=== PATIENT | female | born 1990 | race Two or more races ===

== ENCOUNTER 2020-01-22 09:18 | Inpatient (IN) | payer SELFPAY ==
[~2020-01-22] VITALS: Ht 154.9 cm; Wt 51.9 kg
[2020-01-22 09:45] LABS: Basophils # (auto) 0 10 ^3/uL (0-0.2); Basophils % (auto) 0.3 % (0.0-2.0); Eosinophils # (auto) 0 10 ^3/uL (0-0.8); Eosinophils % (auto) 0.1 % (0.0-7.0); Hemoglobin 15.1 g/dL (12.2-16.2); Lymphocytes # (auto) 0.9 10 ^3/uL (0.4-5.4); Mean Corpuscular Hemoglobin 29.8 pg (28.0-32.0); Mean Corpuscular Hgb Conc. 33.6 g/dL (32.0-36.0); Mean Corpuscular Volume 88.6 fL (80.0-100.0); Monocytes # (auto) 0.2 10 ^3/uL (0-1.3); Monocytes % (auto) 1.5 % (0.0-12.0); Neutrophils # (auto) 14.3 10 ^3/uL (1.6-8.6); Neutrophils % (auto) 92.1 % (37.0-80.0); Nucleated Red Blood Cells % 0.1 %; Platelet Count (auto) 309 10^3/uL (140-450); Red Blood Cells 5.08 10^6/uL (4.0-5.20); Red Cell Distribution Width 12.1 % (11.8-14.3); White Blood Cell 15.5 10^3/uL (4.4-10.8)
[2020-01-22] MEDS ORDERED: SODIUM CHLORIDE 0.9% 1,000 ML IV ONE ×2 (09:54)
[2020-01-22 09:59] LABS: Urine Bacteria FEW /hpf (None Seen); Urine Blood Negative /uL (Negative); Urine Mucus FEW (None Seen); Urine WBC 3 /hpf (0 - 5)
[2020-01-22] MEDS ORDERED: KETOROLAC TROMETH 15 mg/ml 1ML VL IV ONE ×2 (10:00→12:30)
[2020-01-22] MEDS ORDERED: ONDANSETRON HCL 4 MG/2 ML VIAL IV ONE (10:00)
[2020-01-22 10:01] LABS: Albumin 4.2 g/dL (3.4-5.0); Calcium 9.1 mg/dL (8.5-10.1); Potassium 3.4 mmol/L (3.5-5.1)
[2020-01-22 10:05] LABS: BUN/Creatinine Ratio 11.8; Bilirubin, Total 0.3 mg/dL (0.2-1.0); Total Protein 8.6 g/dL (6.4-8.2)
[2020-01-22] MEDS ORDERED: cefTRIAXone 1GM/50ML D5W 50 ML IV ONE (10:15)
[2020-01-22] MEDS ORDERED: HYDROmorphone HCL 2 MG/ML VL IV ONE (10:15)
[2020-01-22 10:59] LABS: Lactic Acid w/Reflex 3.9 mmol/L (0.4-2.0)
[2020-01-22] MEDS ORDERED: POTASSIUM CHL 20MEQ/100ML 100 ML IV ONE (11:15)
[2020-01-22] MEDS ORDERED: KETOROLAC TROMETH 30 MG/ML 1ML VIAL IV ONE (12:45)
[2020-01-22] MEDS ORDERED: NITROGLYCERIN 0.4 MG SL TAB SL PRN (13:30)
[2020-01-22] MEDS ORDERED: PROMETHAZINE HCL 25 MG/ML 1ML IV PRN (13:30)
[2020-01-22] MEDS ORDERED: POTASSIUM CHL 20MEQ/100ML 100 ML IV SCH (13:30)
[2020-01-22] MEDS ORDERED: PANTOPRAZOLE 40 MG/10 ML VIAL INJ IV ONE (13:30)
[2020-01-22] MEDS ORDERED: MORPHINE SULF INJ 2 MG/ML SYRINGE 1ML IV PRN (13:30)
[2020-01-22] MEDS ORDERED: metroNIDAZOLE 500MG/100ML 100 ML IV ONE (13:30)
--- NOTE | 2020-01-22 14:50 | NUR ---
Telemetry admit from [facility] admitted to Telemetry unit after SBAR received. Patient oriented to Pato Morales, primary RN, unit, room, bed, and unit policies regarding patient care and visiting hours. Patient now on continuous telemetry monitoring, tele box # 37 and telemetry reading on arrival to unit is Sinus rhythm. Patient weighed by bedscale and encouraged to call if they need something. All questions and concerns addressed, patient verbalized understanding.
[2020-01-22 15:00] VITALS: BP 113/75
[2020-01-22 15:46] LABS: INR 1.08 (0.9-1.15)
[2020-01-22] MEDS: SODIUM CHLORIDE 0.9% 1,000 ML IV SCH ×2 (16:46→23:22)
[2020-01-22] MEDS: MORPHINE SULF INJ 2 MG/ML SYRINGE 1ML IV PRN ×2 (16:48→22:13)
[2020-01-22 17:00] VITALS: BP 109/71
--- NOTE | 2020-01-22 18:15 | NUR ---
SPOKE WITH DR. HARPER AND INFORMED HIM OF THE PATIENTS HIDA SCAN RESULTS. OBTAINED ORDERS FOR PROCEDURE TOMORROW.
--- NOTE | 2020-01-22 18:30 | NUR ---
LEFT MESSAGE FOR DR. RAZA INFORMING HIM THAT DR. HARPER WANTS TO DO SURGERY TOMORROW. THIS IS A CONFLICT WITH DR. RAZA'S IN PLACE PLANS FOR EGD. AWAITING CALL BACK FROM DR. RAZA TO GET ORDERS.
[2020-01-22 18:33] LABS: Hematocrit 38.3 % (36.0-46.0); Hemoglobin 12.6 g/dL (12.2-16.2)
--- NOTE | 2020-01-22 18:41 | NUR ---
SPOKE WITH DR. RAZA. EGD IS CANCELED FOR TOMORROW SO THAT DR. HARPER CAN PERFORM HIS PROCEDURE.
[2020-01-22 19:15] VITALS: BP 113/75
--- NOTE | 2020-01-22 19:50 | NUR ---
OPENING SHIFT NOTE Pt is resting in bed with eyes open and resp rate is even and unlabored. No s/s of any distress noted at this time. Via Afghan translation by Magalie ROMAN, POC discussed with pt and pt verbalizes understanding. Pt's consent for surgery is in the chart awaiting pt signature post informed consent. Potassium infusing with no adverse reaction. Bed is low, wheels are locked, and call light is with in reach.
[2020-01-22] MEDS: POTASSIUM CHL 20MEQ/100ML 100 ML IV SCH ×2 (20:00→23:22)
[2020-01-22 21:13] VITALS: BP 110/60
[2020-01-22] MEDS: metroNIDAZOLE 500MG/100ML 100 ML IV SCH (23:23)
[2020-01-22] MEDS: PANTOPRAZOLE 40 MG/10 ML VIAL INJ IV SCH (23:23)
[2020-01-23 00:53] LABS: Hematocrit 35.7 % (36.0-46.0)
[2020-01-23] MEDS: SODIUM CHLORIDE 0.9% 1,000 ML IV SCH ×3 (02:53→16:27)
[2020-01-23 04:55] VITALS: BP 111/57
[2020-01-23 05:58] LABS: Basophils # (auto) 0 10 ^3/uL (0-0.2); Basophils % (auto) 0.3 % (0.0-2.0); Eosinophils # (auto) 0.1 10 ^3/uL (0-0.8); Eosinophils % (auto) 0.4 % (0.0-7.0); Hematocrit 35.8 % (36.0-46.0); Hemoglobin 12.3 g/dL (12.2-16.2); Lymphocytes # (auto) 2.1 10 ^3/uL (0.4-5.4); Lymphocytes % (auto) 16.1 % (10.0-50.0); Mean Corpuscular Hemoglobin 30.2 pg (28.0-32.0); Mean Corpuscular Hgb Conc. 34.4 g/dL (32.0-36.0); Monocytes # (auto) 1.1 10 ^3/uL (0-1.3); Monocytes % (auto) 8.4 % (0.0-12.0); Neutrophils # (auto) 9.9 10 ^3/uL (1.6-8.6); Neutrophils % (auto) 74.8 % (37.0-80.0); Nucleated Red Blood Cells % 0.1 %; Platelet Count (auto) 243 10^3/uL (140-450); Red Blood Cells 4.07 10^6/uL (4.0-5.20); Red Cell Distribution Width 12.2 % (11.8-14.3); White Blood Cell 13.2 10^3/uL (4.4-10.8)
[2020-01-23] MEDS: metroNIDAZOLE 500MG/100ML 100 ML IV SCH ×3 (06:02→22:04)
[2020-01-23 06:10] LABS: Potassium 4.2 mmol/L (3.5-5.1)
[2020-01-23 06:18] LABS: Albumin 2.8 g/dL (3.4-5.0); BUN/Creatinine Ratio 7.3; Bilirubin, Total 0.5 mg/dL (0.2-1.0); Calcium 7.7 mg/dL (8.5-10.1); Total Protein 6.1 g/dL (6.4-8.2)
--- NOTE | 2020-01-23 07:34 | NUR ---
Opening Shift Note Assumed care of patient, awake and alert. No S/S of distress/SOB or pain. Instructed on POC and to call for assist PRN, will continue to monitor for changes Q1hr and PRN.
[2020-01-23 08:00] VITALS: BP 100/65
[2020-01-23] MEDS ORDERED: SUCCINYLCHOLINE CHLORIDE 20 MG/ML 10ML VIAL IV ONE (08:40)
[2020-01-23] MEDS ORDERED: ROCURONIUM 10MG/ML 10ML VIAL IV ONE (08:40)
[2020-01-23] MEDS ORDERED: ONDANSETRON HCL 4 MG/2 ML VIAL ONE (08:41)
[2020-01-23] MEDS ORDERED: DexAMETHasone SOD PHOS 10MG/1ML VIAL INJ ONE (08:41)
[2020-01-23] MEDS ORDERED: LIDOCAINE 2% (LOCAL ANESTH.) PF 5ml SDV ONE (08:41)
[2020-01-23] MEDS ORDERED: MIDAZOLAM HCL 1MG/1ML-2 ML VIAL ONE (08:42)
[2020-01-23] MEDS ORDERED: PROPOFOL 10 MG/ML 20 ML IV ONE (08:42)
[2020-01-23] MEDS ORDERED: fentaNYL CITRATE 100 MCG/2 ML VL ONE (08:42)
--- NOTE | 2020-01-23 08:44 | NUR ---
PATIENT OFF UNIT TO OR. NO DISTRESS NOTED AT TIME OF TRANSPORT.
[2020-01-23 09:00] VITALS: BP 100/65
[2020-01-23] MEDS ORDERED: NALOXONE HCL 0.4 MG/ML VIAL IV PRN (09:00)
[2020-01-23] MEDS: cefTRIAXone 1GM/50ML D5W 50 ML IV SCH (09:00)
[2020-01-23] MEDS ORDERED: HYDROmorphone HCL 2 MG/ML VL IV PRN (09:00)
[2020-01-23] MEDS ORDERED: ePHEDrine SULFATE 50 MG/ML AMP IV PRN (09:00)
[2020-01-23] MEDS ORDERED: LABETALOL HCL 5 MG/ML 4ML SYRINGE IV PRN (09:00)
[2020-01-23] MEDS: ceFAZolin 1GM/50ML 50 ML IV ONE ×2 (09:04→09:55)
[2020-01-23] MEDS ORDERED: MIDAZOLAM HCL 1MG/1ML-2 ML VIAL IV ONE (09:06)
[2020-01-23] MEDS ORDERED: KETOROLAC TROMETH 60MG/2ML VIAL IM ONE (09:06)
[2020-01-23] MEDS ORDERED: POVIDONE IODINE 10 % TOPICAL OINT 30GM TOP ONE (09:28)
[2020-01-23] MEDS ORDERED: NEOSTIGMINE 1 MG/ML INJ (10mg/10ML VIAL) ONE (09:49)
[2020-01-23] MEDS ORDERED: GLYCOPYRROLATE 0.2 MG/ML 1ML VIAL ONE (09:49)
[2020-01-23] MEDS: PANTOPRAZOLE 40 MG/10 ML VIAL INJ IV SCH ×2 (10:00→22:04)
[2020-01-23] MEDS: HYDROmorphone HCL 2 MG/ML VL IV PRN ×2 (10:21→10:31)
--- NOTE | 2020-01-23 11:17 | NUR ---
patient back to room from OR. patient currently sleeping but is easily aroused. no signs of distress. abdominal binder in place. will continue to monitor for any signs of bleeding and pain management.
[2020-01-23 13:09] VITALS: BP 97/63
[2020-01-23 16:32] VITALS: BP 97/52
[2020-01-23] MEDS: MORPHINE SULF INJ 2 MG/ML SYRINGE 1ML IV PRN (20:29)
[2020-01-23 22:00] VITALS: BP 100/53
[2020-01-24] MEDS: MORPHINE SULF INJ 2 MG/ML SYRINGE 1ML IV PRN ×3 (00:29→17:21)
[2020-01-24] MEDS: SODIUM CHLORIDE 0.9% 1,000 ML IV SCH ×3 (01:00→21:00)
[2020-01-24 02:00] VITALS: BP 103/51
[2020-01-24 05:49] LABS: Basophils # (auto) 0 10 ^3/uL (0-0.2); Basophils % (auto) 0.1 % (0.0-2.0); Eosinophils # (auto) 0 10 ^3/uL (0-0.8); Eosinophils % (auto) 0.1 % (0.0-7.0); Hemoglobin 11.3 g/dL (12.2-16.2); Lymphocytes # (auto) 1.5 10 ^3/uL (0.4-5.4); Lymphocytes % (auto) 12.4 % (10.0-50.0); Mean Corpuscular Hemoglobin 30.2 pg (28.0-32.0); Mean Corpuscular Hgb Conc. 34.2 g/dL (32.0-36.0); Mean Corpuscular Volume 88.2 fL (80.0-100.0); Monocytes % (auto) 8.2 % (0.0-12.0); Neutrophils # (auto) 9.4 10 ^3/uL (1.6-8.6); Neutrophils % (auto) 79.2 % (37.0-80.0); Platelet Count (auto) 224 10^3/uL (140-450); Red Blood Cells 3.74 10^6/uL (4.0-5.20); Red Cell Distribution Width 12.3 % (11.8-14.3); White Blood Cell 11.8 10^3/uL (4.4-10.8)
[2020-01-24 05:52] VITALS: BP 106/66
[2020-01-24 05:56] LABS: Calcium 7.7 mg/dL (8.5-10.1); Potassium 3.7 mmol/L (3.5-5.1)
[2020-01-24 05:58] LABS: BUN/Creatinine Ratio 8.9; Bilirubin, Total 0.4 mg/dL (0.2-1.0)
[2020-01-24] MEDS: metroNIDAZOLE 500MG/100ML 100 ML IV SCH ×3 (06:17→21:40)
--- NOTE | 2020-01-24 07:00 | NUR ---
Opening Shift Note Received report on the patient. Awake lying in bed. Discussed plan of care with the patient. The patient does not show any signs of distress at this time. Chronic pain managed well ; patient reported moderate pain 5/10 as a tolerable level; will continue to monitor pain level.ALPESH drain patent with scant serosanguineous fluid in drainage bag.IV patent fluids running as ordered. Bed is in the lowest position, side rails up x2, and the call light is within reach. Will continue to monitor.
[2020-01-24] MEDS: PANTOPRAZOLE 40 MG/10 ML VIAL INJ IV SCH ×2 (08:46→21:40)
[2020-01-24] MEDS: cefTRIAXone 1GM/50ML D5W 50 ML IV SCH (08:46)
[2020-01-24] MEDS: ACETAMINOPHEN 500 MG TAB PO PRN (08:47)
[2020-01-24 08:52] VITALS: BP 96/53
[2020-01-24 13:00] VITALS: BP 108/53
[2020-01-24 17:00] VITALS: BP 109/52
--- NOTE | 2020-01-24 18:23 | NUR ---
UPDATED FAMILY ON POC AND FAMILY TRANSLATED TO PATIENT. PATIENT VERBALIZED UNDERSTANDING VIA FAMILY MEMBER.
--- NOTE | 2020-01-24 18:23 | NUR ---
DRAINED 20 CC FROM J/P DRAIN.
--- NOTE | 2020-01-24 19:39 | NUR ---
Opening Shift Note Assumed care of patient. Pt is awake, alert, and orientated x 4. No S/S of distress/SOB or pain. Bed is in lowest position with side rail up x 2. Bed brakes are locked and call light is with in reach. HOB is 30 degrees. Instructed on POC and to call for assist PRN, will continue to monitor for changes Q1hr and PRN.
[2020-01-24 21:26] VITALS: BP 102/52
[2020-01-25] VITALS (7 sets, daily range): BP systolic 102–114; BP diastolic 58–72
[2020-01-25 05:09] LABS: Basophils # (auto) 0.1 10 ^3/uL (0-0.2); Basophils % (auto) 0.8 % (0.0-2.0); Eosinophils # (auto) 0 10 ^3/uL (0-0.8); Eosinophils % (auto) 0.7 % (0.0-7.0); Hematocrit 32.3 % (36.0-46.0); Hemoglobin 11.2 g/dL (12.2-16.2); Lymphocytes # (auto) 2.5 10 ^3/uL (0.4-5.4); Lymphocytes % (auto) 39.8 % (10.0-50.0); Mean Corpuscular Hemoglobin 30.8 pg (28.0-32.0); Mean Corpuscular Hgb Conc. 34.7 g/dL (32.0-36.0); Mean Corpuscular Volume 88.9 fL (80.0-100.0); Monocytes # (auto) 0.5 10 ^3/uL (0-1.3); Monocytes % (auto) 8.3 % (0.0-12.0); Neutrophils # (auto) 3.2 10 ^3/uL (1.6-8.6); Neutrophils % (auto) 50.4 % (37.0-80.0); Nucleated Red Blood Cells % 0.1 %; Platelet Count (auto) 224 10^3/uL (140-450); Red Blood Cells 3.64 10^6/uL (4.0-5.20); White Blood Cell 6.3 10^3/uL (4.4-10.8)
[2020-01-25 05:36] LABS: Calcium 7.4 mg/dL (8.5-10.1); Potassium 3.2 mmol/L (3.5-5.1)
[2020-01-25 05:38] LABS: BUN/Creatinine Ratio 5.1
[2020-01-25] MEDS: metroNIDAZOLE 500MG/100ML 100 ML IV SCH ×3 (05:55→21:49)
[2020-01-25] MEDS: SODIUM CHLORIDE 0.9% 1,000 ML IV SCH ×2 (06:03→17:00)
--- NOTE | 2020-01-25 07:12 | NUR ---
closing notes endorsed care to day shift nurseJúnior.
--- NOTE | 2020-01-25 07:20 | NUR ---
Opening shift note Assume care of patient. Patient A&Ox4, respirations even and non-labored with no s/s of distress. Discussed POC with patient who verbalized understanding. IV patent and intact. Bed lowered/locked with 2 side rails up will continue to monitor.
[2020-01-25] MEDS: cefTRIAXone 1GM/50ML D5W 50 ML IV SCH (09:00)
[2020-01-25] MEDS: PANTOPRAZOLE 40 MG/10 ML VIAL INJ IV SCH ×2 (09:43→21:49)
[2020-01-25] MEDS ORDERED: POTASSIUM EFFERVESENT TAB 25 MEQ PO ONE (09:45)
--- NOTE | 2020-01-25 11:31 | NUR ---
Pt is currently listed as having no current insurance. Pt states they are currently unemployed. Discussed with patient elgibility options for medical coverage base on their current situation. Pt referred ti Moreno Jc, [facility] organizational effectiveness consultant to assist with process for [facility] insurance coverage. Advised pt that additional information regarding D/C planning would be provided prior to their discharge. Will follow up with Moreno reguarding the insurance status.
--- NOTE | 2020-01-25 14:52 | NUR ---
Nutrition Assessment Notes Please refer to link for full assessment notes. Est energy needs: 7670-0837 kcals (25-30 kcal/kgBW) Est protein needs: 44-54 gms/day (0.8-1.0 gm/kgBW) Will continue to monitor and reassess prn. Addendum: 01/25/20 at [address] Amended: Links added.
[2020-01-25] MEDS ORDERED: ALBUTEROL SULF 2.5 MG/0.5ML(0.5%) NEB SOLN NEB PRN (16:00)
--- NOTE | 2020-01-25 16:27 | NUR ---
PT edwin galicia received. Spoke with pt and she states she lives in a single story home with her spouse and was previously independent with all functional mobility. I observed the patient ambulate in the [address] without an assistive device independently. She has no balance or strength deficits. She is safe to ambulate independently and does not require skilled PT at this time.
--- NOTE | 2020-01-25 17:00 | NUR ---
RT AT BEDSIDE. PATIENT TOLERATED TREATMENT WELL.
--- NOTE | 2020-01-25 17:56 | NUR ---
PAIN PATIENT DENIED PAIN RATED 0/0.
--- NOTE | 2020-01-25 19:10 | NUR ---
Received report from the Day Shift ABEL Callejas. Pt. in bed resting.
--- NOTE | 2020-01-25 19:36 | NUR ---
Pt. SR @ 86 @ [facility] Bx # 37. Pt. denies chest pain and denies any pain @ this time.
--- NOTE | 2020-01-25 20:00 | NUR ---
Assessment done and completed.
--- NOTE | 2020-01-25 21:49 | NUR ---
Meds. as scheduled given/administered. Pt. given explanation of the use and mechanism of action of these meds. Explanation given in simple Icelandic language. Pt. verbalized understanding in Icelandic.
--- NOTE | 2020-01-26 00:30 | NUR ---
Pt. sleeping and resting. Still on 2L/NC continuous. No s/s of sob or dyspnea, with IS @ the bedside and pt. use it whenever she's awake. IVF of NS @ 100 ml./hr. continuously running @ 100 ml./hr. attached to the LAC G # 18, kept. dry, patent and intact. No verbalization of pain. Pt. calm and quiet @ this time. SR @ the 70-s to 80's @ the Tele # 37.
[2020-01-26] MEDS: ACETAMINOPHEN 500 MG TAB PO PRN ×2 (02:50→10:36)
--- NOTE | 2020-01-26 02:50 | NUR ---
Pt. given Tylenol 500 mg. po @ 0250 Am for hurting pain of 3/10 @ the abdomen.
[2020-01-26] MEDS: SODIUM CHLORIDE 0.9% 1,000 ML IV SCH ×2 (02:51→13:00)
--- NOTE | 2020-01-26 02:51 | NUR ---
Followed Up a new 1 Liter bag of NS running @ the same rate of 100 ml/hr. @ the LAC G # 18. IV keep patent and intact.
--- NOTE | 2020-01-26 03:50 | NUR ---
Pt. fell asleep. No s/s of facial grimacing. No s/s of agitation or anxiousness. No verbalization @ this time.
--- NOTE | 2020-01-26 04:00 | NUR ---
SR @ 68 @ the monitor with Tele Box # 37. Pt. sleeping and resting. No s/s of sob. Still on 2L/NC continuous.
[2020-01-26 05:05] LABS: Basophils # (auto) 0.1 10 ^3/uL (0-0.2); Basophils % (auto) 0.8 % (0.0-2.0); Eosinophils # (auto) 0.1 10 ^3/uL (0-0.8); Eosinophils % (auto) 1.9 % (0.0-7.0); Hematocrit 35.8 % (36.0-46.0); Hemoglobin 12.2 g/dL (12.2-16.2); Lymphocytes # (auto) 2.4 10 ^3/uL (0.4-5.4); Lymphocytes % (auto) 35.8 % (10.0-50.0); Mean Corpuscular Hemoglobin 30.1 pg (28.0-32.0); Mean Corpuscular Hgb Conc. 34.1 g/dL (32.0-36.0); Mean Corpuscular Volume 88.5 fL (80.0-100.0); Monocytes # (auto) 0.5 10 ^3/uL (0-1.3); Monocytes % (auto) 8.1 % (0.0-12.0); Neutrophils # (auto) 3.6 10 ^3/uL (1.6-8.6); Neutrophils % (auto) 53.4 % (37.0-80.0); Nucleated Red Blood Cells % 0.2 %; Platelet Count (auto) 258 10^3/uL (140-450); Red Blood Cells 4.04 10^6/uL (4.0-5.20); Red Cell Distribution Width 12.4 % (11.8-14.3); White Blood Cell 6.7 10^3/uL (4.4-10.8)
[2020-01-26 05:23] LABS: Calcium 7.7 mg/dL (8.5-10.1); Potassium 3.5 mmol/L (3.5-5.1)
[2020-01-26 05:25] LABS: BUN/Creatinine Ratio 8.7
[2020-01-26 05:37] VITALS: BP 99/62
[2020-01-26] MEDS: metroNIDAZOLE 500MG/100ML 100 ML IV SCH ×2 (05:40→14:00)
--- NOTE | 2020-01-26 06:28 | NUR ---
PT ASSESSED FOR PRN HHN TX. PT IS ON 2LNC, SPO2 96%, HR 96, RR 16. NO S/S OF RESPIRATORY DISTRESS. HHN TX NOT INDICATED AT THIS TIME. WILL CONTINUE TO MONITOR.
--- NOTE | 2020-01-26 07:00 | NUR ---
Gave report to the next Day Shift RN. Callejas. Pt. resting and sleeping. Afebrile.
[2020-01-26 08:00] VITALS: BP 106/58
[2020-01-26 09:00] VITALS: BP 106/68
[2020-01-26] MEDS: PANTOPRAZOLE 40 MG/10 ML VIAL INJ IV SCH (09:02)
[2020-01-26] MEDS: cefTRIAXone 1GM/50ML D5W 50 ML IV SCH (09:02)
--- NOTE | 2020-01-26 09:41 | NUR ---
Paged Dr. Castro regarding ALPESH dressing change.
--- NOTE | 2020-01-26 09:43 | NUR ---
Dr. Castro returned call and okayed RN to change ALPESH drain dressing.
[2020-01-26 10:31] VITALS: BP 106/68
--- NOTE | 2020-01-26 11:15 | NUR ---
Performed dressing change Dressing changed on ALPESH drain. Discussed and educated patient on how to change dressing and measure ALPESH fluids at home, s/s, when to notify. Patient verbalized understanding. Removed both IVs on left AC and left hand. Both catheter intact.
[2020-01-26 12:33] VITALS: BP 107/65
--- NOTE | 2020-01-26 15:08 | NUR ---
Discharge instructions given as ordered. Encourage to follow up with PMD as instructed. All questions and concerns addressed. Patient verbalized understandin. IV removed with catheter intact, pressure dressing applied. Educated patient on jamie drain care, how to empty and monitor for infection. Telemetry unit returned to ICU. Patient taken to vehicle via wheelchair with all personal belongings, accompanied by staff and family member. No distress noted at time of departure.
[2020-01-27] MEDS ORDERED: FAMOTIDINE 20 MG TAB PO SCH (10:00)
== END 2020-01-26 15:05 | disposition home or self-care (01) | DRG 853 ==
LOC: ER 09:18 → TELE 09:19 → TELE-CENTR 14:50
PROVIDERS: ADMIT Internal Medicine; ATTEND Internal Medicine
PROC: 0FT44ZZ Resection of Gallbladder, Percutaneous Endoscopic Approach (ICD-10-PCS; principal; 2020-01-23 09:07)
DX: A41.9 Sepsis, unspecified organism (principal); N17.0 Acute kidney failure with tubular necrosis; E44.0 Moderate protein-calorie malnutrition; K80.00 Calculus of gallbladder with acute cholecystitis without obstruction; K92.0 Hematemesis; E86.0 Dehydration; E87.6 Hypokalemia; N18.9 Chronic kidney disease, unspecified; Z68.21 Body mass index [BMI] 21.0-21.9, adult; Z79.899 Other long term (current) drug therapy
CPT/HCPCS: 36415; 36600; 71045; 74176; 76705; 76856; 78226; 80048; 80053; 81001; 82150; 82247; 82805; 83605; 83690; 84702; 85014; 85018; 85025; 85045; 85610; 86850; 86900; 86901; 87040; 87070; 87075; 87205; 87804; 87880; 94640; 96361; 96365; 96366; 96375; C9113; G0378; J0330; J0690; J0696; J1100; J1885; J2001; J2250; J2405; J2704; J3480; J3490